=== PATIENT | male | born 1950 | race Caucasian/White ===

== ENCOUNTER 2018-07-30 11:06 | Emergency (ER) | payer OTHER, MEDICARE ==
[2018-07-30] MEDS ORDERED: KETOROLAC 15 MG/1 ML SDV IVP ONE (11:19)
[2018-07-30] MEDS ORDERED: GABAPENTIN 300 MG CAP PO ONE (11:19)
[2018-07-30] MEDS ORDERED: DIAZEPAM 5 MG/ML 1 ML SYR IVP ONE (11:19)
[2018-07-30] MEDS ORDERED: DEXAMETHASONE 4 MG/ML VIAL IVP ONE (11:19)
--- NOTE | 2018-07-30 11:19 | EDPHY ---
H & P Stated Complaint: back pain Time Seen by Provider: 07/30/18 11:15 HPI/ROS: HPI: This is a 68-year-old male who presents with Chief Complaint: Back pain Location: Midline lumbar Quality: Pain Duration: Since Monday Signs and Symptoms: No bleeding, no radiation, no numbness, no weakness, no tingling, no incontinence, + decreased range of motion, no swelling, + pain, no fever Timing: Acute, worsened Severity: Moderate to severe Context: Patient reports that he has been moving into a new place into [place], presents with several day history that started around Monday of lower back pain in the midline area that initially started with spasms and decreased range of motion. Over the weekend he was unable to get out of bed and laid there for approximately 2 days secondary to pain with any movement. Denies any change in bowel or bladder habits. He has a history of lumbar laminectomy as well as fusion. He is followed by Dr. Lewis. Patient able to get out of bed and ambulate to the car with help of this morning for the 1st time. Presents to the emergency room for further evaluation and pain control. He has been taking [place] with mild transient relief of pain. Patient reports that he severely claustrophobic and has to be medicated prior to MRI. Patient has an appoint with Dr. Lewis on August 20. Modifying Factors: See above Comment: ROS: A comprehensive 10 system review of systems is otherwise negative aside from elements mentioned in the history of present illness. MEDICAL/SURGICAL/SOCIAL HISTORY: Medical history: A-Fib, HTN, BPH, CAD Surgical history: Lumbar Laminectomy and lumbar fusion Social history: Retired, CONSTITUTIONAL: Polite and cooperative, moderate distress, elderly white male awake and alert HEENT: Atraumatic and normocephalic. NECK: supple, no midline tenderness. No meningismus. Cardiovascular: Normal S1/S2, regular rate, regular rhythm, without murmur rub or gallop. PULMONARY/CHEST: Symmetrical and nontender. no crepitus. Clear to auscultation bilaterally. Good air movement. No accessory muscle usage. ABDOMEN: Soft, nondistended, nontender, no ecchymosis. BACK: Midline well-healed incisions noted; moderate midline tenderness, no paraspinous spasm, deep tendon reflexes 2/2, severe pain with straight leg raise , No foot drop. Achilles reflexes are equal bilaterally. Unable to perform flexion or transfer in bed without severe pain EXTREMITIES: 2/2 pulses, strength 5/5, DIP/PIP/MCP flexion/extension intact with good light touch sensation. no deformities, no clubbing, no cyanosis or edema. NEUROLOGICAL: no focal neuro deficits. GCS 15. Light touch sensation intact. SKIN: Warm and dry, no erythema. no rash. Good capillary refill. Source: Patient Exam Limitations: No limitations - Personal History Current Tetanus Diphtheria and Acellular Pertussis (TDAP): Yes - Medical/Surgical History Hx Asthma: No Hx Chronic Respiratory Disease: No Hx Diabetes: No Hx Cardiac Disease: No Hx Renal Disease: No Hx Cirrhosis: No Hx Alcoholism: No Hx HIV/AIDS: No Hx Splenectomy or Spleen Trauma: No Other PMH: Hx of A-Fib, HTN, BPH, CAD - Social History Smoking Status: Former smoker Constitutional: Initial Vital Signs Temperature (C) 36.4 C 07/30/18 11:10 Heart Rate 64 07/30/18 11:10 Respiratory Rate 18 07/30/18 11:10 Blood Pressure 180/96 H 07/30/18 11:10 O2 Sat (%) 96 07/30/18 11:10 O2 Delivery Mode Room Air O2 (L/minute) 2 Allergies/Adverse Reactions: HAYFEVER Allergy (Mild, Uncoded 07/30/18 11:08) ITCHY EYES, SNEEZE Home Medications: Medication Instructions Recorded Herbals/Supplements -Info Only 1 ea PO DAILY 08/19/14 Losartan Potassium [Cozaar] 100 mg PO HS 08/19/14 Melatonin [Melatonin 3 MG (*)] 3 mg PO HS PRN 08/19/14 Potassium Cl [Klor-Con 20 meq (*)] 20 meq PO DAILY 08/19/14 Spironolactone [Aldactone 25 MG 25 mg PO HS 08/19/14 (*)] Tamsulosin HCl [Flomax 0.4 MG (*)] 0.4 mg PO BID 08/19/14 amLODIPine BESYLATE [Norvasc 5 mg 5 mg PO HS 08/19/14 (*)] Fexofenadine HCl [Shaila Allergy] 60 mg PO DAILY 06/23/15 Ibuprofen [Advil] 200 mg PO BID PRN 06/23/15 Nebivolol HCl [Bystolic] 2.5 mg PO HS 06/23/15 Diazepam [Valium 5 MG (*)] 5 mg PO Q6 PRN #0 tab 07/08/15 Hydrocodone/APAP 5/325 [[place] 1 - 2 tab PO Q4 PRN #0 tab 07/08/15 5/325 (*)] Aleve 09/29/16 Diclofenac Sodium 09/29/16 METRONIDAZOLE 09/29/16 Maxalt 09/29/16 Omeprazole 09/29/16 Diazepam [Valium 5 MG (*)] 5 mg PO Q8 PRN #12 tab 07/30/18 Eliquis 07/30/18 methylPREDNISolone [Medrol Dose 1 each PO AD #0 ea 07/30/18 Mark] oxyCODONE IR [Oxycodone Ir (*)] 5 - 10 mg PO Q4-6PRN PRN #12 tab 07/30/18 Medical Decision Making - Diagnostics Imaging Results: Imaging Impressions Lumbar Spine MRI 07/30/18 11:19 Impression: 1. Complete relief of spinal canal stenosis at L4-L5 from prior surgery. 2. Slight interval worsening of the degree of canal stenosis at L3-L4 due to increased broad-based central disk bulge. 3. Degenerative disk bulge and facet disease with mild canal stenosis at L2-L3 and L1-L2, as above. Findings were discussed with Mel Echeverria PA-C, at 1:35 PM. ED Course/Re-evaluation: Vital signs reviewed and stable upon arrival. Placed on monitoring analyst and shows rate controlled atrial fibrillation. IV access obtained, MRI lumbar spine ordered due to history of back surgeries and midline tenderness. Patient will be medicated with IV Valium 5 mg, IV Dilaudid 1 mg, IV Toradol 15 mg, IV Decadron 8 mg, p.o. Gabapentin 600 mg 1230: Notified by nurse that patient return from MRI. Called by radiologist that MRI shows L1 all 2 is mildly worse than 2012, L2-L3 shows moderate degenerative changes, L3-L4 shows severe spinal canal stenosis, L4-L5 shows stable surgery. Reassessed patient who reports relief of pain. Able to transfer out of bed on own. Walked approximately 100 ft and then became dizzy and nauseous. Likely secondary to medications. IV Zofran given Given MRI on disc 1445: Repeat road test performed and patient reports minimal pain with minimal difficulty ambulating with walker. He is requesting be discharged home with follow-up with Dr. English outpatient. I feel that this is reasonable. feels comfortable taking him home. We have an adequate plan for pain control. No signs of neurovascular compromise/tenting of skin/compartment syndrome/ extremities and joints examined above and below area of concern and are neurovascularly intact/cauda equina syndrome/epidural hematoma/diskitis. This patient was seen under the supervision of my secondary supervising physician. I evaluated care for this patient independently. Discussed this patient with Dr. Alfred. Differential Diagnosis: Back pain including but not limited to muscular pain, herniated disc, spine fracture, intra-abdominal causes and urinary tract infection. - Data Points Medications Given: Discontinued Medications Dexamethasone (Decadron Injection) 8 mg IVP EDNOW ONE Stop: 07/30/18 11:20 Last Admin: 07/30/18 11:48 Dose: 8 mg Diazepam (Valium) 5 mg IVP EDNOW ONE Stop: 07/30/18 11:20 Last Admin: 07/30/18 11:53 Dose: 5 mg Gabapentin (Neurontin) 600 mg PO EDNOW ONE Stop: 07/30/18 11:20 Last Admin: 07/30/18 12:55 Dose: 600 mg Hydromorphone HCl (Dilaudid) 1 mg IVP EDNOW ONE Stop: 07/30/18 11:21 Last Admin: 07/30/18 11:50 Dose: 1 mg Ketorolac Tromethamine (Toradol) 15 mg IVP EDNOW ONE Stop: 07/30/18 11:20 Last Admin: 07/30/18 11:51 Dose: 15 mg Ondansetron HCl (Zofran) 4 mg IVP EDNOW ONE Stop: 07/30/18 13:51 Last Admin: 07/30/18 13:51 Dose: 4 mg Departure - Departure Disposition: Home, Routine, Self-Care Clinical Impression: Degeneration of lumbar intervertebral disc with acute herniation Lumbar canal stenosis Qualifiers: Neurogenic claudication status: without neurogenic claudication Qualified Code( s): M48.061 - Spinal stenosis, lumbar region without neurogenic claudication Condition: Good Instructions: Degenerative Disc Disease (ED), Lumbar Disc Herniation (ED), Lumbar Spinal Stenosis (ED), Laxative, Stool Softeners (By mouth) Additional Instructions: Take Medrol Dosepak as directed. Take Tylenol 650 mg every 4 hours and/or Ibuprofen 600 mg every 8 hours with food as needed for pain. Use oxycodone every 4-6 hours as needed for severe/break through pain. Take Valium every 8 hr as needed for muscle spasm. Take stool softeners twice a day to prevent constipation. Follow up with Neurosurgery in 5-7 days at which time they will evaluate and recommend with you if conservative management versus further intervention is indicated. Return to the ER immediately if you have new or worsening back pain, fevers/ chills, flu like symptoms, incontinence or inability to urinate or defecate, weakness, paralysis, or any other symptom that concerns you Referrals: MELITON KUMAR [Primary Care Provider] - As per Instructions Mariam Lewis MD [Medical Doctor] - As per Instructions Prescriptions: Diazepam [Valium 5 MG (*)] 5 mg PO Q8 PRN #12 tab PRN Reason: Spasms methylPREDNISolone [Medrol Dose Mark] 1 each PO AD #0 ea oxyCODONE IR [Oxycodone Ir (*)] 5 - 10 mg PO Q4-6PRN PRN #12 tab PRN Reason: Pain, Severe
[2018-07-30] MEDS ORDERED: HYDROmorphONE/DILAUDID 2 MG/ML INJ IVP ONE (11:20)
[2018-07-30] MEDS ORDERED: ONDANSETRON 4 MG/2 ML VIAL IVP ONE (13:50)
[2018-07-30] MEDS ORDERED: ONDANSETRON 4 MG/2 ML VIAL ONE (13:51)
[2018-07-30 14:50] VITALS: BP 145/99
== END 2018-07-30 15:00 | disposition home or self-care (01) ==
DX: M54.5 Low back pain (principal); Z98.1 Arthrodesis status; M48.061 Spinal stenosis, lumbar region without neurogenic claudication; I10 Essential (primary) hypertension
CPT/HCPCS: 72148; 96374; 96375; 99285; J1100; J1170; J1885; J2405; J3360